=== PATIENT | male | born 1960 | race Caucasian/White ===

== ENCOUNTER 2022-10-07 17:23 | Emergency (ER) | payer OTHER ==
[~2022-10-07] VITALS: Ht 188 cm; Wt 88.5 kg
[~2022-10-07 17:23] MED LIST: KETO10TA2 PO; SEPTRA DS TABLE1 TAB PO
== END 2022-10-07 20:27 | disposition home or self-care (01) ==
LOC: ER 17:23
DX: U07.1 COVID-19 (principal)